=== PATIENT | male | born 1990 | race Caucasian/White ===

== ENCOUNTER 2019-02-20 15:24 | Emergency (ER) | payer BC ==
[~2019-02-20] VITALS: Ht 165.1 cm; Wt 92.1 kg
[2019-02-20 15:31] VITALS: Ht 165.1 cm; Wt 92.1 kg
[2019-02-20 16:12] VITALS: BP 121/68
== END 2019-02-20 16:12 | disposition home or self-care (01) ==
LOC: ED 15:24
DX: S01.01XD Laceration without foreign body of scalp, subsequent encounter (principal); X58.XXXD Exposure to other specified factors, subsequent encounter